=== PATIENT | female | born 2000 | race Caucasian/White ===

== ENCOUNTER 2024-01-19 22:41 | Emergency (ER) | payer OTHER, SELFPAY ==
[2024-01-19 22:52] VITALS: BP 120/77
--- NOTE | 2024-01-19 23:33 | ED.GENMED ---
History of Present Illness
General
Chief Complaint: Abdominal Symptoms
Time Seen by Provider: 01/19/24 23:14
Travel History
Have you had any contact with someone who has COVID-19?: No
Do you have any symptoms of coronavirus? Fever > 100 degrees, chills, cough, shortness of breath, sore throat, loss of taste or smell, muscle aches, or headache?: No
History of Present Illness
History of Present Illness:
23-year-old female presents the emergency department for evaluation of nausea, epigastric discomfort, and low back discomfort over the past 2 days. She had a similar episode last month that was felt to be due to gastroenteritis, was treated at
[facility] for this. She does note that she has been on semaglutide for approximately 1 year for weight loss. She denies any diarrhea or lower urinary tract voiding symptoms. No fevers chills or night sweats.
Past History
Past History
ED Past Medical History: None
ED Past Surgical History: Other (Aline teeth extraction)
Social History
Tobacco: Non-smoker
Personal: Single
Living: with family
Review of Systems
Review of Systems
Allergies reviewed?: Yes
All Other Systems: ROS reviewed and negative except as documented in HPI and ROS
Phy Exam
Physical Exam
Physical Exam:
GEN: Well appearing, NAD, WDWN
HEENT: Oral mucosa moist, no scleral icterus
Cardiac: Regular rate
Lung: No respiratory distress, no tachypnea
Abdomen: Soft, nontender, no rigidity
MSK: No gross deformity or injuries
Skin: Good color, no pallor or jaundice, no rashes
Neuro: AO x3, moves all extremities freely
Psych: Calm, cooperative
Course
Orders/Labs/Results
Orders:
Orders
01/19/24 23:32
0.9% Sodium Chloride 1000 ml [Nss] 1,000 ml IV BOLUS
Metoclopramide [Reglan] 10 mg IV NOW STA
Test Result ONCE
01/19/24 23:43
Complete Blood Count/With Diff Urgent
Comprehensive Metabolic Panel Urgent
HCG, Serum Qualitative Screen Urgent
Lipase Urgent
Urinalysis Reflex To Culture Urgent
Date Specimen was Collected: 01/19/24
Time Specimen was Collected: 23:40
Urine Microscopic Reflex Cult Urgent
01/20/24 00:28
Ondansetron Injectable [Zofran] 4 mg IV NOW STA
Abnormal Lab Results
01/19/24
23:43
RBC 4.16 L 10^6/uL
(4.20-5.40)
Hct 34.8 L %
(37.0-47.0)
MCH 31.3 H pg
(27.0-31.0)
MCHC 37.4 H g/dL
(33.0-37.0)
Sodium 132 L mmol/L
(135-145)
Carbon Dioxide 21 L mmol/L
(22-30)
Urine Ketones 3+ A
(Negative)
Leukocyte Esterase Rfl Trace A
(Negative)
Urine Bacteria (Reflex) Few A
(Negative)
01/19/24 23:43
01/19/24 23:43
Vital Signs
Initial and Last Documented VS:
Initial Vital Signs
Temp Pulse Resp BP Pulse Ox
97.9 F 87 16 120/77 100
01/19/24 22:52 01/19/24 22:52 01/19/24 22:52 01/19/24 22:52 01/19/24 22:52
Last Documented Vital Signs
Temp Pulse Resp BP Pulse Ox
97.9 F 79 16 115/72 99
01/19/24 22:52 01/20/24 01:38 01/20/24 01:38 01/20/24 01:38 01/20/24 01:38
MDM/Problems Addressed
MDM/Problems Addressed:
Suspect symptoms are related to chronic semaglutide use. The patient had no further vomiting in the emergency department. Her labs are reassuring, abdominal exam is benign, no indication for imaging. I recommended she discontinue the GLP-1
agonist as this is likely provocative of her symptoms
*Critical Care Note
Total Time (30-74mins, 75-104mins- exclusive of procedures): Not Applicable
ED Attending Note
-
Portions of this chart may have been created with voice recognition software.� Occasional wrong word or��sound alike� substitutions may have occurred due to the inherent limitations of voice recognition software.
Discharge Plan
Departure
Patient Disposition: Home (Routine Discharge)
Date of Disposition: 01/20/24
Time of Disposition: 01:27
Patient with high blood pressure during this ER visit?: No
Discharge Problem:
Nausea
Instructions: Nausea and Vomiting, Adult (DC)
Prescriptions:
New
metoclopramide HCl [Reglan] 10 mg tablet
10 mg PO Q8HPRN PRN (Reason: nausea and vomiting) Qty: 9 0RF
No Action
semaglutide (weight loss) 1.7 mg/0.75 mL Pen Injector
1.7 mg SC QWEEK
Referrals:
Ludwig Hubbard MD [Active] -
Archie Reyez MD [Family Provider] -
Activity Restrictions/Additional Instructions:
Stop taking your semaglutide
Follow up with your primary doctor
Interventions
Interventions:
*Risk Screen - Suicide Last Done: 01/19/24 22:52
*General Assessment Last Done: 01/19/24 23:45
*Neglect/Abuse Screening Last Done: 01/19/24 22:52
*ED COVID-19 Vaccine History Last Done: 01/19/24 22:52
*Nursing Disposition Last Done: 01/20/24 01:38
QP-Anvcgm-Bjgehkmqil Assessment Last Done: 01/19/24 23:45
Discharge Date and Time
Discharge Date/Time: 01/20/24 01:41
Print Language: SWEDISH
[2024-01-19 23:35] VITALS: BMI 26.2
[2024-01-19] MEDS: NSS 1000 IV (23:39)
[2024-01-19] MEDS: REGLAN 10 MG IV (23:39)
[2024-01-19 23:50] LABS: % Basophils 0.6 % (0-2); % Eosinophils 0.6 % (0-6); % Immature Granulocytes 0.2 % (0-0.5); % Lymphocytes 36.6 % (20.5-51.1); % Monocytes 6.3 % (1.7-9.3); % Neutrophils 55.7 % (42.2-75.2); Absolute Lymphocytes 1.9 10^3/uL (1.2-3.4); Absolute Monocytes 0.3 10^3/uL (0.1-0.6); Absolute Neutrophils 2.9 10^3/uL (1.4-6.5); Hematocrit 34.8 % (37.0-47.0); Mean Corp Hgb Conc. 37.4 g/dL (33.0-37.0); Mean Corpuscular Hgb 31.3 pg (27.0-31.0); Mean Corpuscular Volume 83.7 fL (81.0-99.0); Mean Platelet Volume 10.3 fL (7.4-10.4); Nucleated Red Blood Cells % 0 %; Platelet Count 192 10^3/uL (130-400); Red Blood Cell Count 4.16 10^6/uL (4.20-5.40); White Blood Cell Count 5.3 10^3/uL (4.8-10.8)
[2024-01-19 23:51] LABS: Urine Albumin Negative (Neg - Trace); Urine Bilirubin Negative (Negative); Urine Character Clear (Clear); Urine Glucose Negative (Negative); Urine Ketone 3+ (Negative); Urine Leukocyte Trace (Negative); Urine Nitrite Negative (Negative); Urine Occult Blood Negative (Negative); Urine Specific Gravity 1.025 (<1.030); Urine Urobilinogen Negative (Neg - 1+)
[2024-01-19 23:56] LABS: Urine Color Yellow
[2024-01-20 00:03] LABS: HCG, Serum Qualitative Screen Negative
[2024-01-20 00:06] LABS: ALT (SGPT) < 10 U/L (0-35); AST (SGOT) 15 U/L (14-36); Albumin 4.5 g/dl (3.5-5.0); Alkaline Phosphatase 46 U/L (38-126); Blood Urea Nitrogen 10 mg/dl (7-17); Calcium 9.5 mg/dl (8.4-10.2); Carbon Dioxide 21 mmol/L (22-30); Chloride 104 mmol/L (98-107); Estimated Creatinine Clearance 119 ml/min; Glucose 83 mg/dl (70-99); Lipase 32 U/L (23-300); Potassium 3.7 mmol/L (3.5-5.1); Sodium 132 mmol/L (135-145); Total Protein 6.9 g/dl (6.3-8.2); eGFR > 60.00
[2024-01-20] MEDS: ZOFRAN 4 MG IV (00:33)
[2024-01-20 01:17] LABS: Urine Bacteria Few (Negative); Urine Mucus Many; Urine Red Blood Cell 0-2 /HPF (0-2); Urine Squamous Cell >30 /LPF (Few)
[2024-01-20 01:38] VITALS: BP 115/72
== END 2024-01-20 01:41 | disposition home or self-care (01) ==
LOC: EMR 22:41
PROVIDERS: Physician Assistant; EMERGENCY PHYSICIAN Emergency Medicine; FAMILY PHYSICIAN Family Medicine
DX: R11.0 Nausea (principal); R13.10 Dysphagia, unspecified; M54.50 Low back pain, unspecified
CPT/HCPCS: 99283; 96374 ×2; 96361; 80053; 81003; 81015; 83690; 84703; 85025